=== PATIENT | female | born 1975 | race African-American/Black ===

== ENCOUNTER 2016-12-30 03:13 | Emergency (ER) | payer MEDICAID ==
[~2016-12-30] VITALS: Ht 165.1 cm; Wt 86.0 kg
[2016-12-30] MEDS ORDERED: VISCOUS LIDOCAINE 2% 15 ML UDC PO STA (05:14)
[2016-12-30] MEDS ORDERED: ONDANSETRON 4MG ODT PO STA (05:14)
[2016-12-30] MEDS ORDERED: IBUPROFEN 600MG TABLET PO ONE (05:15)
[2016-12-30 05:46] VITALS: BP 128/83
== END 2016-12-30 06:14 | disposition home or self-care (01) ==
LOC: ER 03:16
DX: J06.9 Acute upper respiratory infection, unspecified (principal); I10 Essential (primary) hypertension
CPT/HCPCS: 87804; 99284; Q0162

== ENCOUNTER 2018-04-28 07:29 | Emergency (ER) | payer MEDICAID ==
[~2018-04-28] VITALS: Ht 167.6 cm; Wt 94.0 kg
[2018-04-28] MEDS ORDERED: HYDROCODONE/ACETAMINOPHEN 5/325MG TABLET PO ONE (10:15)
[2018-04-28] MEDS ORDERED: ONDANSETRON 4MG ODT PO ONE (10:15)
[2018-04-28 10:30] VITALS: BP 150/83
== END 2018-04-28 11:12 | disposition home or self-care (01) ==
LOC: ER 07:29
DX: M54.41 Lumbago with sciatica, right side (principal); I10 Essential (primary) hypertension; X50.1XXA Overexertion from prolonged static or awkward postures, initial encounter; Y93.89 Activity, other specified; Y92.89 Other specified places as the place of occurrence of the external cause; Y99.8 Other external cause status
CPT/HCPCS: 81025; 99283; Q0162